=== PATIENT | female | born 1985 | race Two or more races ===

== ENCOUNTER 2021-07-18 09:29 | Inpatient (IN) | payer OTHER ==
[~2021-07-18] VITALS: Ht 162.6 cm; Wt 104.3 kg
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
[2021-07-18] MEDS ORDERED: CYCLOBENZAPRINE 10 MG TABLET PO ONE (10:00)
[2021-07-18] MEDS ORDERED: ACETAMINOPHEN ES 500 MG TABLET PO ONE (10:00)
[2021-07-18] MEDS ORDERED: CYCLOBENZAPRINE 10 MG TABLET ONE (10:13)
[2021-07-18] MEDS ORDERED: ACETAMINOPHEN ES 500 MG TABLET ONE (10:13)
--- NOTE | 2021-07-18 10:37 | NUR ---
THE PATIENT IS TAKEN TO CT VIA [facility]
--- NOTE | 2021-07-18 12:10 | NUR ---
CALLED [facility] AND OPENED CASE FOR PT. REQUESTED A MD TO MD CALL BACK. DR. STRICKLAND WILL BE CALLING BACK
[2021-07-18] MEDS ORDERED: LORAZEPAM INJ 2 MG/ML VIAL IV ONE (12:30)
[2021-07-18] MEDS ORDERED: IV NS 0.9% 2,000 ML IV ONE (12:30)
[2021-07-18] MEDS ORDERED: LORAZEPAM INJ 2 MG/ML VIAL ONE (12:39)
[2021-07-18 12:44] LABS: BASOPHILS % (AUTO) 0.2 % (0.0-2.0); EOSINOPHILS % (AUTO) 0.1 % (0.0-6.0); HEMATOCRIT 36 % (33-45); HEMOGLOBIN 11.5 g/dL (11.5-14.8); LYMPHOCYTES # (AUTO) 1.4 K/uL (0.8-4.8); LYMPHOCYTES % (AUTO) 5.9 % (20.0-44.0); MEAN CORPUSCULAR HGB CONC 32 g/dl (31.0-36.0); MEAN CORPUSCULAR VOLUME 91 fL (82-100); MONOCYTES # (AUTO) 1.4 K/uL (0.1-1.30); MONOCYTES % (AUTO) 5.8 % (2.0-12.0); NEUTROPHILS # (AUTO) 20.8 K/uL (1.8-8.9); PLATELET COUNT (AUTO) 318 K/uL (150-450); RED BLOOD CELL COUNT(AUTO) 3.91 MIL/uL (4.0-5.2); WHITE BLOOD COUNT (AUTO) 23.6 K/uL (4.3-11.0)
[2021-07-18 13:10] LABS: CALCIUM, SERUM 8.9 mg/dL (8.5-10.1); CREATININE 1.1 mg/dL (0.6-1.3)
--- NOTE | 2021-07-18 13:11 | NUR ---
COVID SWAB DONE AND SENT TO LAB
[2021-07-18] MEDS ORDERED: BIOT5CAP2 PO (13:24)
[2021-07-18] MEDS ORDERED: CETI-90 PO (13:24)
[2021-07-18] MEDS ORDERED: NORE0.356 PO (13:24)
[2021-07-18] MEDS ORDERED: MODAFINIL PO (13:24)
[2021-07-18] MEDS ORDERED: OMEP40CA21 PO (13:24)
[2021-07-18] MEDS ORDERED: CHOL100043 PO (13:24)
[2021-07-18] MEDS ORDERED: DULO30CA52 PO (13:24)
[2021-07-18] MEDS ORDERED: MULT-24 PO (13:24)
[2021-07-18] MEDS ORDERED: GABA600T12 PO (13:24)
[2021-07-18] MEDS ORDERED: TRIA10.8 (13:24)
[2021-07-18] MEDS ORDERED: CYCL5TAB MT (13:24)
[2021-07-18] MEDS ORDERED: VITA1TAB56 PO (13:24)
--- NOTE | 2021-07-18 13:40 | NUR ---
CONSENT FOR BLOOD TRANSFUSION SIGNED.
--- NOTE | 2021-07-18 14:14 | NUR ---
CONSENT FOR PERCUTANEOUS ABCESS DRAIN OF RIGHT BREAST SIGNED BY PATIENT.
--- NOTE | 2021-07-18 14:52 | NUR ---
ROOM 307-1
--- NOTE | 2021-07-18 15:57 | NUR ---
ENDORSED PATIENT TO [facility] IN [facility]. PATIENT WILL BE IN 307-1.
[2021-07-18 16:00] VITALS: BP 116/87
--- NOTE | 2021-07-18 16:00 | NUR ---
pt. adm. to med surg. floor,alert and oriented x4.neck brace in place.rt. chest dressing with small amt. leakage.side rails up.instructed not to get oob with out help. denies need for pain med.will endorse photos to tanja. nurse.
--- NOTE | 2021-07-18 16:05 | NUR ---
PATIENT TRANSFERRED TO [facility]- VIA STRETCHER
[2021-07-18] MEDS ORDERED: CYCLOBENZAPRINE 10 MG TABLET PO PRN (17:00)
[2021-07-18] MEDS ORDERED: MAG HYDROX/AL HYDROX/SIMETH 30 ML UDC PO PRN (17:30)
[2021-07-18] MEDS ORDERED: MAGNESIUM HYDROXIDE 30 ML UDC PO PRN (17:30)
[2021-07-18] MEDS ORDERED: MORPHINE SULFATE INJ 2 MG/ML DISP.SYRIN IV PRN (17:30)
[2021-07-18] MEDS ORDERED: HYDROCODONE/APAP 10/325MG TABLET PO PRN (17:30)
[2021-07-18] MEDS ORDERED: HYDROCODONE/APAP 5/325MG TABLET PO PRN (17:30)
[2021-07-18] MEDS ORDERED: Z GUARD REMEDY 4 OZ OINT TP PRN (17:30)
[2021-07-18] MEDS ORDERED: ONDANSETRON HCL/PF 4 MG/2 ML VIAL IVP PRN (17:30)
[2021-07-18] MEDS ORDERED: ZOLPIDEM TARTRATE 5 MG TABLET PO PRN (17:30)
[2021-07-18] MEDS: GABAPENTIN 300 MG CAPSULE PO SCH (18:11)
[2021-07-18 20:00] VITALS: BP 129/76
--- NOTE | 2021-07-18 21:21 | NUR ---
MS/TELE/RN ON INITIAL ASSESSMENT, FOUND PATIENT IN BED AWAKE, ALERT, ORIENTED, COMFORTABLE, C/O PAIN 11/26 BUT REFUSED TO TAKE PAIN MEDICATION AT THIS TIME. RIGHT DRESS DRESSING WAS WITH SEROSANGUINEOUS DRAINAGE, REENFORCED DRESSING. WILL MONITOR.
[2021-07-19 06:19] LABS: BASOPHILS # (AUTO) 0.1 K/uL (0.0-0.2); BASOPHILS % (AUTO) 0.6 % (0.0-2.0); EOSINOPHILS % (AUTO) 1.3 % (0.0-6.0); HEMATOCRIT 28 % (33-45); HEMOGLOBIN 9.4 g/dL (11.5-14.8); LYMPHOCYTES # (AUTO) 2.5 K/uL (0.8-4.8); LYMPHOCYTES % (AUTO) 27.8 % (20.0-44.0); MEAN CORPUSCULAR HGB CONC 33 g/dl (31.0-36.0); MEAN CORPUSCULAR VOLUME 91 fL (82-100); MONOCYTES % (AUTO) 11.2 % (2.0-12.0); NEUTROPHILS # (AUTO) 5.4 K/uL (1.8-8.9); NEUTROPHILS % (AUTO) 59.1 % (43.0-81.0); PLATELET COUNT (AUTO) 240 K/uL (150-450); RED BLOOD CELL COUNT(AUTO) 3.08 MIL/uL (4.0-5.2); WHITE BLOOD COUNT (AUTO) 9.1 K/uL (4.3-11.0)
--- NOTE | 2021-07-19 07:27 | NUR ---
MS/TELE/RN PATIENT APPEARS SLEEPING, APPEARS COMFORTABLE, NO DISTRESS NOTED, CALL LIGHT IN REACH, ALL NEEDS ATTENDED AT THIS TIME, WILL CONTINUE TO MONITOR.
[2021-07-19 07:49] LABS: THYROID STIMULATING HORMONE 1.241 uIU/mL (0.358-3.74)
[2021-07-19 07:55] LABS: CREATININE 0.9 mg/dL (0.6-1.3); PHOSPHORUS 3.2 mg/dL (2.5-4.9); POTASSIUM 3.5 mmol/L (3.5-5.1)
[2021-07-19 08:00] VITALS: BP 123/79
[2021-07-19] MEDS: GABAPENTIN 300 MG CAPSULE PO SCH ×2 (09:07→18:13)
[2021-07-19] MEDS: DULOXETINE HCL 30 MG CAPSULE.DR PO SCH (09:07)
[2021-07-19] MEDS: ACETAMINOPHEN 325 MG TABLET PO PRN ×2 (09:07→21:40)
[2021-07-19] MEDS: MODAFINIL 100 MG TABLET PO SCH (09:07)
[2021-07-19] MEDS: cetrizine 10 MG TABLET PO SCH (09:07)
[2021-07-19] MEDS: MULTIVITAMINS,THERAGRAN 1 UDTAB TABLET PO SCH (09:07)
[2021-07-19] MEDS: PANTOPRAZOLE 40 MG TABLET.DR PO SCH (09:07)
--- NOTE | 2021-07-19 09:10 | NUR ---
REQUESTS TYLENOL FOR HEADACHE,ADDITIONALLY TEARY EYED AND STATING SHE IS DIZZY AND WORRIED ABOUT A BRAIN BLEED.RN ASSURED PT. WE WOULD GET AN X-RAY OF HER HEAD TO CHECK THIS OUT.TAKING REGULAR MEDS.PT. CRYING SEVERAL TIMES AND STATES SHE IS ANXIOUS.
--- NOTE | 2021-07-19 10:37 | NUR ---
WOUND CARE CONSULT: PT SEEN FOR RT BREAST HEMATOMA, STATUS POST DRAINAGE IN E.R. SURGICAL CONSULT PLACED TO DR KNOX. AREA COVERED WITH ABD PAD. IN AGREEMENT WITH PLAN OF CARE.
--- NOTE | 2021-07-19 14:10 | NUR ---
DR. CANELA IN AND ORDERING CT OF HEAD.ADDITIONALLY DR. MARCIAL IN WELL.
--- NOTE | 2021-07-19 15:00 | NUR ---
HEAD CT COMPLETED.
[2021-07-19 16:00] VITALS: BP 127/63
--- NOTE | 2021-07-19 19:54 | NUR ---
MS/TELE/RN PATIENT IS LYING IN BED AWAKE, ALERT, ORIENTED, COMFORTABLE, NO DISTRESS NOTED, CALL LIGHT IN REACH. DRESSING OF RIGHT BREAST SOAK WITH SEROSANGUINEOUS DRAINAGE, CHANGED DRESSING PER ORDER. WILL MONITOR.
[2021-07-19 20:00] VITALS: BP 127/72
--- NOTE | 2021-07-20 00:01 | NUR ---
MS/TELE/RN PATIENT IS SLEEPING AT THIS TIME, APPEAR COMFORTABLE, NO DISTRESS NOTED, CALL LIGHT IN REACH, WILL CONTINUE TO MONITOR,
--- NOTE | 2021-07-20 06:04 | NUR ---
MS/TELE/RN PATIENT IS STILL SLEEPING AT THIS TIME, APPEAR COMFORTABLE, NO SIGN S OF DISTRESS NOTED, ALL NEEDS ATTENDED AT THIS THIS TIME, WILL CONTINUE TO MONITOR.
--- NOTE | 2021-07-20 07:50 | NUR ---
MS RN LEXY NOTES Pt IS AWAKE IN BED. A/Ox4. BREATHING IS EVEN AND UNLABORED ON ROOM AIR. NO COMPLAINTS OF PAIN. Pt IS CURRENTLY AGITATED BECAUSE SHE EXPRESSED HER WANTING TO GO HOME. IV ACCESS L AC IS PATENT AND INTACT. SAFETY MEASURES ARE IN PLACE: BED IS LOCKED AND IN LOWEST POSITION. SIDE RAILS UPx2. CALL LIGHT AND BED SIDE TABLE ARE WITHIN REACH. WILL CONTINUE TO MONITOR
[2021-07-20 08:00] VITALS: BP 127/83
[2021-07-20] MEDS: PANTOPRAZOLE 40 MG TABLET.DR PO SCH (08:25)
[2021-07-20] MEDS: DULOXETINE HCL 30 MG CAPSULE.DR PO SCH (08:34)
[2021-07-20] MEDS: GABAPENTIN 300 MG CAPSULE PO SCH (08:34)
[2021-07-20] MEDS: cetrizine 10 MG TABLET PO SCH (08:34)
[2021-07-20] MEDS: MULTIVITAMINS,THERAGRAN 1 UDTAB TABLET PO SCH (08:35)
[2021-07-20] MEDS: MODAFINIL 100 MG TABLET PO SCH (08:39)
--- NOTE | 2021-07-20 13:18 | NUR ---
RN NOTES PICKED UP BY FAMILY, DISCHARGED TO HOME TODAY.
--- NOTE | 2021-07-20 13:20 | NUR ---
RN NOTES Pt IS DISCHARGED. Pt IS MEDICALLY STABLE, A/Ox4, ON ROOM AIR TOLERATING WELL. NO COMPLAINTS OF PAIN AND NO SIGNS OF DISTRESS. IV ACCESS REMOVED. DISCHARGE INSTRUCTIONS EXPLAINED. Pt LEFT VIA PRIVATE CAR WITH FAMILY MEMBER
== END 2021-07-20 13:16 | disposition home or self-care (01) | DRG 605 ==
LOC: ER 09:36 → TRANSITION 13:29 → MED 14:58
PROC: 0H9T3ZX Drainage of Right Breast, Percutaneous Approach, Diagnostic (ICD-10-PCS; principal; 2021-07-18)
DX: S20.02XA Contusion of left breast, initial encounter (principal); Y92.410 Unspecified street and highway as the place of occurrence of the external cause; V89.2XXA Person injured in unspecified motor-vehicle accident, traffic, initial encounter; Z20.822 Contact with and (suspected) exposure to COVID-19; F41.9 Anxiety disorder, unspecified; D72.829 Elevated white blood cell count, unspecified; F32.A Depression, unspecified; Z88.8 Allergy status to other drugs, medicaments and biological substances; Z91.040 Latex allergy status; Z79.899 Other long term (current) drug therapy; S20.112A Abrasion of breast, left breast, initial encounter; G35 Multiple sclerosis; K42.9 Umbilical hernia without obstruction or gangrene
CPT/HCPCS: 36415; 70450-TC; 71250-TC; 73130-TC; 73564-TC; 75989; 80048-TC; 80061-TC; 83735-TC; 84100-TC; 84443-TC; 84703-TC; 85025-TC; 85730-TC; 86850-TC; 87081-TC; A6253; A6403; G0378; J2060